=== PATIENT | male | born 1990 | race Caucasian/White ===

== ENCOUNTER 2025-05-31 15:17 | Emergency (ER) | payer BC, SELFPAY ==
[2025-05-31 15:18] VITALS: BP 136/90; PULSE 98; RESP 18; TEMP 36.9; O2SAT 97
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
[2025-05-31 16:46] LABS: Abs Immature Grans 0.05 10^3/uL (0.0-0.06); HCT 44.4 % (40.0-50.0); HGB 15.3 g/dL (13.5-17.5); Immature Grans % 0.5 %; MCH 29.6 pg (27.0-33.0); MCHC 34.5 % (32.0-36.0); MCV 86 fL (80-95); MPV 11.1 fL (8.0-11.0); Platelet Count 258 10^3/uL (130-400); RBC 5.17 10^6/uL (4.36-5.78); RDW 11.7 % (11.8-14.1); RDW-SD 36.7 fL; WBC 9.71 10^3/uL (4.4-10.8)
[2025-05-31] MEDS: Hepatitis B Virus Vaccine 20 MCG/ML VIAL IM (17:03)
[2025-05-31 17:05] LABS: ALT 32 U/L (10-49); AST 24 U/L (<34); Albumin 4.8 g/dL (3.2-5.0); Alkaline Phosphatase 60 U/L (46-116); Anion Gap 8.8 mmol/L (3-11); BUN 13 mg/dL (9-23); Bilirubin, Total 0.6 mg/dL (0.2-1.2); CO2 25.2 mmol/L (20.0-31.0); Calcium 9.4 mg/dL (8.3-10.6); Chloride 106 mmol/L (98-107); Glucose 80 mg/dL (74-106); Potassium 3.8 mmol/L (3.5-5.1); Sodium 140 mmol/L (136-145); Total Protein 7.5 g/dL (5.7-8.2)
[2025-06-01 18:39] LABS: HIV-1/2 Ag & Ab Screen Negative (Negative)
[2025-06-01 18:49] LABS: Hepatitis A Antibody IgM Negative (Negative); Hepatitis C Ab w Rflx HCV PCR Negative (Negative)
[2025-06-02 11:06] LABS: Syphilis Serology (RPR) Negative (Negative)
== END 2025-05-31 16:48 | disposition home or self-care (01) ==
LOC: ER 16:11
PROVIDERS: Emergency Provider Nurse Practitioner Family; PCP Physician Assistant
DX: Z77.21 Contact with and (suspected) exposure to potentially hazardous body fluids (principal); Z23 Encounter for immunization; Y99.0 Civilian activity done for income or pay; Y92.149 Unspecified place in prison as the place of occurrence of the external cause
CPT/HCPCS: 99283; 99284; 90471; 80053; 86704; 86709; 86803; 87340; 87389; 90746; 85025; 86592